=== PATIENT | female | born 1990 ===

== ENCOUNTER 2017-08-26 08:42 | Inpatient (IN) | payer OTHER ==
[2017-08-26 09:29] VITALS: BMI 29.8
[2017-08-26] MEDS ORDERED: Lactated Ringer's 1,000 ML IV SCH (10:30)
[2017-08-26] MEDS: Lactated Ringer's 500 ML IV SCH ×4 (10:30→22:48)
[2017-08-26 10:43] LABS: BASO % 0.4 % (0.0-2.0); EOS # 0.1 K/uL (0.0-0.7); EOS % 0.6 % (0.0-4.0); HEMATOCRIT 37.8 % (34.0-47.0); LYMPH # 1.1 K/uL (1.0-4.3); LYMPH % 11.4 % (20.0-40.0); MEAN CELL VOLUME 86.6 fl (81.0-99.0); MEAN CORPUSCULAR HEMOGLOBIN 28.8 pg (27.0-31.0); MEAN CORPUSCULAR HGB CONC 33.2 g/dL (33.0-37.0); MEAN PLATELET VOLUME 9.3 fl (7.2-11.7); MONO # 0.8 K/uL (0.0-0.8); MONO % 8.9 % (0.0-10.0); NEUT # 7.3 K/uL (1.8-7.0); NEUT % 78.7 % (50.0-75.0); NRBC % 0.1 % (0.0-0.0); RED CELL DISTRIBUTION WIDTH 13.8 % (11.5-14.5); WHITE BLOOD COUNT 9.3 K/uL (4.8-10.8)
[2017-08-26] MEDS: Oxytocin 30 units/LR 500ML 30 U/500 ML BAG IV ONE (11:00)
[2017-08-26] MEDS ORDERED: Lidocaine 1% Inj (20ml) ONE (11:39)
[2017-08-27] MEDS ORDERED: cefOXitin Sodium 1 GM in Sodium Chloride 0.9% 100 ML IVPB ONE (05:26)
[2017-08-27] MEDS ORDERED: Phenylephrine 10 mg/ml Inj ONE (05:54)
[2017-08-27] MEDS ORDERED: ePHEDrine 50 mg/ml Inj ONE (05:55)
[2017-08-27] MEDS ORDERED: Morphine 1 mg/ml preservative-free Inj(Duramorph) ONE (05:56)
--- NOTE | 2017-08-27 05:57 | OBPN ---
Datetime: 08/27/2017 05:51 IP Progress Impression: Arrest of dilatation/descent IP Informed Consent Obtain: Section Delivery; Risks, Benefits and Alternatives Discussed IP Progress Plan: Deliver- Section Membranes, Provider: Intact Contraction Comments Provider: 2-3 FHR - Baseline A Provider: 150"s Gestation - Est Wks by US: [id number] IP Progress Note Comment: pt examined at 520 am and basically no changes dispite good UC and augumen tation with Pitocin Discussed about CPD and situation and agreed with abdominal delivery Informed con sent was obtained will start on pre-op antibiotics Anesthesia called NICHD Accel Fetus A IP Provider: [id number] NICHD Variability Prov Fetus A: Moderate 6-25bpm Dilatation, Provider: 4cm Effacement, Provider: 60% Station, Provider: high NICHD Decel Fetus A IP Provider: None
[2017-08-27] MEDS: Oxytocin 30 units/LR 500ML 30 U/500 ML BAG IV ONE (06:27)
[2017-08-27] MEDS ORDERED: Oxytocin 30 units/LR 500ML 30 U/500 ML BAG IV ONE (06:27)
[2017-08-27] MEDS ORDERED: Naloxone 0.4 mg/ml Inj (Adult) IVP PRN (06:54)
[2017-08-27] MEDS ORDERED: DiphenhydrAMINE 50 mg/ml Inj IVP PRN (06:54)
--- NOTE | 2017-08-27 07:22 | OBDS ---
DELIVERY PERSONNEL Delivery Doctor: Tiffany Martinez MD Quality Facilitator: Ma. Darcie Yu RN Anesthesiologist: Joao Quiroga MD MATERNAL INFORMATION Delivery Anesthesia: Spinal Estimated Blood Loss (ml): 850 Maternal Complications: None Provider Comments: see dictated surgeons note LABOR SUMMARY EDC: 08/21/2017 00:00 No. Babies in Womb: 1 Attempted: No Labor Anesthesia: None LABOR INFORMATION Reason for Induction: Postterm Oxytocin: Induction Group B Beta Strep: Negative Steroids Given: None Reason Steroids Not Administered: Not Applicable MEMBRANES Membranes Rupture Method: Spontaneous Rupture of Membranes: 08/27/2017 06:25 Length of Rupture (hrs): 0.02 Amniotic Fluid Color: Clear STAGES OF LABOR Stage 3 hrs: 0 Stage 3 min: 1 VAGINAL DELIVERY Episiotomy: None Laceration Extension: N/A Laceration Type: None Laceration Repair: Not Applicable Sponge Count Correct: Yes Sharps Count Correct: Yes Count Comment: count corrrect x3 CSECTION DELIVERY Primary Indication: Secondary Arrest of Dilatation Other Primary Indication: CPD Secondary Indication: Failure of Descent CSection Urgency: Elective Labor: Labor Elective: Elective CSection Incision: Lower Uterine Transverse Uterine Closure: Double-layer closure BABY A INFORMATION Delivery Date/Time: 08/27/2017 06:26 Method of Delivery: Born in Route : No : N/A Forceps: N/A Vacuum Extraction: N/A Shoulder Dystocia : No SHOULDER DYSTOCIA BABY A Infant Delivery Date/Time: 08/27/2017 06:26 PRESENTATION/POSITION BABY A Presentation: Cephalic PLACENTA INFORMATION BABY A Placenta Delivery Time : 08/27/2017 06:27 Placenta Method of Delivery: Spontaneous Placenta Status: Delivered SCORES BABY A Heart Rate 1 min: >100 bpm Resp Effort 1 min: Good Cry Reflex Irritability 1 min: Cough or Sneeze or Pulls Away Muscle Tone 1 min: Active Motion Color 1 min: Body [place], Extremities Blue Resuscitation Effort 1 min: Tactile Stimulation SCORE 1 MIN: 9 Heart Rate 5 min: >100 bpm Resp Effort 5 min: Good Cry Reflex Irritability 5 min: Cough or Sneeze or Pulls Away Muscle Tone 5 min: Active Motion Color 5 min: Body [place], Extremities Blue Resuscitation Effort 5 min: N/A SCORE 5 MIN: 9 INFANT INFORMATION BABY A Gestational Age at Delivery: 40.6 Gestational Status: Post-term Outcome : Liveborn Condition : Stable Sex: Female IDENTIFICATION/MEDS BABY A ID Band Number: [id number] ID Band Location: Left Leg; Left Arm WEIGHT/LENGTH BABY A Birthweight (gms): 4215 Infant Weight (lb): 9 Weight (oz): 5 CORD INFORMATION BABY A No. Cord Vessels: 3 Nuchal Cord : Around Neck x1, Loose Cord Blood Taken: Yes Suction: Mouth; Nose
[2017-08-27] MEDS: cefOXitin Sodium 1 GM in Sodium Chloride 0.9% 100 ML IVPB SCH ×2 (13:53→22:40)
[2017-08-27] MEDS: Lactated Ringer's 500 ML IV SCH ×3 (13:54→19:31)
--- NOTE | 2017-08-27 20:54 | OP ---
PROCEDURE DATE: 08/27/2017 PREOPERATIVE DIAGNOSES: 1. of 40 weeks and 6 days' gestation. 2. Arrest of dilatation and failure to descent secondary to cephalopelvic disproportion. POSTOPERATIVE DIAGNOSES: 1. of 40 weeks and 6 days gestation. 2. Arrest of dilatation and failure to descent secondary to cephalopelvic disproportion. 3. Nuchal cord x1. 4. Macrosomia. PROCEDURE: Primary low-transverse segment section. SURGEON: Charbel Martinez MD MANAGER OFFICE SERVICES: Dr. Rebollar, who was there for the entire duration of the case. Mitten Stitcher was needed in positioning the patient, opening of the abdomen, delivery of the baby, and closure of the abdomen. ANESTHESIA USED: Spinal per Dr. Quiroga. ESTIMATED BLOOD LOSS: 750 mL. DRAINS USED: None. REPLACEMENT USED: None. FINDINGS: 1. Delivered living baby girl, baby appears term, large for gestational age. Baby cried spontaneously. Pediatrist in attendance. score of 9 and 9. 2. Nuchal cord x1, loose. 3. Amniotic fluid clear. 4. Placenta delivered complete and intact. 5. Both tubes and ovaries appeared grossly within normal limits to inspection bilaterally. DESCRIPTION OF PROCEDURE: The patient was taken to the operating room and placed on the operating table in supine position. Following induction of spinal anesthesia, the patient was then replaced in the supine position. Husain catheter was inserted into the bladder and was draining clear fluid. Venodyne boots were applied to both legs. The abdomen was then draped and prepped in a usual sterile manner. Anesthesia was tested and found to be well secured, and a Pfannenstiel incision was then made using sharp dissection two fingerbreadths above the symphysis pubis. The incision was then extended down to subcutaneous tissue also using sharp dissection. Hemostasis was obtained by means of electrocoagulation. The fascia was then identified, was then entered at the midline, and the incision in the fascia was then extended laterally on each direction in a semi-curvilinear fashion. Rectus muscle was then identified, which was then split in the midline, disposing the peritoneum. Peritoneal layer was then picked up using two Em clamps, retracted superiorly, and then entered using sharp dissection. Incision in the peritoneum was then extended superiorly and inferiorly under direct visualization. At this time, the bladder was then identified and was then retracted inferiorly using the [place] retractor. The low transverse segment of the uterus was then identified and the visceroperitoneum covering this area was then entered using sharp dissection. Using blunt dissection, a bladder flap was then created and retracted inferiorly using the same [place] retractor. Following this, we then proceeded to make an incision on the low transverse segment of the uterus. Upon entering the uterine cavity, clear fluid was noted to be present. The incision was then extended laterally in each direction using bandage scissors. Using amnioscopy procedure, a living baby girl was then delivered. The baby appears large for gestational age, appeared term, and the baby cried spontaneously. The umbilicus was then doubly clamped, cut, and the baby handed to the pediatric personnel who was standing by. Samples of cord blood were then obtained, and the placenta was then delivered complete and intact. There had been a loop of cord that was undone prior to full delivery, loose. At this time, the uterus was then exteriorized in order to provide better visualization. The uterine cavity was then thoroughly cleaned using moist lap pad, and the uterus was massaged and contracted well. The uterine incision was then secured using multiple T clamps, and was then approximated using a 0 Vicryl suture in a continuous interlocking manner. A second layer was also applied using 0 Vicryl suture in a continuous manner. Hemostasis was checked and found to be well secured. The bladder flap was then approximated using a 2-0 Vicryl in a continuous manner. Again, hemostasis was checked and found to be well secured. Free amniotic fluid and blood were then evacuated from the pelvic cavity. The pelvic cavity was then irrigated using saline solution, evacuated off this solution, and all operative areas checked, hemostatically secured. Both tubes and ovaries appeared grossly within normal limits to inspection bilaterally and the uterus was then allowed to retract back into its original position. All operative areas were checked, hemostatically secured, and the peritoneum was then closed using 0 Vicryl suture in a continuous manner. Rectus muscle was also closed at the midline using 0 Vicryl suture in a continuous manner. At this time, operative areas were checked, found to be hemostatically secure, and the fascia was then identified and approximated using 1 Vicryl suture in a continuous manner. Fascia was then checked and found to be free of defect. Subcutaneous tissue was then irrigated using saline solution and approximated using several interrupted 2-0 plain sutures after hemostatically secured by means of electrocoagulation. At this time, we then proceeded to close the skin using a 3-0 Prolene in a subcuticular fashion. Steri-Strips were then applied. The patient tolerated the procedure well. There were no complications. Clear fluid noted to be present in the Husain bag at this time. Sponge, instrument, and needle counts were correct x3. Charbel Martinez MD
[2017-08-27] MEDS ORDERED: Lactated Ringer's 1,000 ML IV SCH (23:45)
[2017-08-28] MEDS: Lactated Ringer's 500 ML IV SCH ×2 (04:36)
[2017-08-28] MEDS: cefOXitin Sodium 1 GM in Sodium Chloride 0.9% 100 ML IVPB SCH (05:52)
[2017-08-28] MEDS: Oxycodone/Acetaminophen 5/325 mg Tab PO PRN ×3 (06:30→20:55)
[2017-08-28 06:50] LABS: HEMATOCRIT 30.8 % (34.0-47.0); MEAN CELL VOLUME 85.9 fl (81.0-99.0); MEAN CORPUSCULAR HEMOGLOBIN 29.3 pg (27.0-31.0); MEAN CORPUSCULAR HGB CONC 34.1 g/dL (33.0-37.0)
--- NOTE | 2017-08-28 08:37 | OBPPN ---
Datetime: 08/28/2017 08:31 PP Pain Prov: Within normal limits PP Pain Prov comment: No SOB, chest pains or leg pains PP Nausea Prov: Denies PP Flatus Prov: Yes PP Breasts Prov: Normal PP Lungs Prov: Normal PP Abdomen/Uterus Prov: Abnormal PP Lochia Prov: Normal PP Vulva/Perineum Prov: Normal PP CVA Tenderness Prov: Normal PP Extremities Prov: Normal PP C/S Incision Prov: Normal PP Progress Prov: Normal PP Comments Phys Exam Prov: breast not engorged NT; Abd soft ND depressible fundus firm at umb, Dres sing removed no active bleeding no sign of infection Ext no calf tenderness PP Impression Prov: Normal progression PP Plan Prov: Continue present management PP Progress Note Prov: increase diet OOB and ambulation Start po iron Continue po care IP PP Procedures: None
[2017-08-28] MEDS ORDERED: Simethicone 80 mg Chewtab PO PRN (21:01)
[2017-08-28 21:34] LABS: BASO % 0.2 % (0.0-2.0); EOS % 0.2 % (0.0-4.0); HEMATOCRIT 33.9 % (34.0-47.0); LYMPH % 9.1 % (20.0-40.0); MEAN CELL VOLUME 86.9 fl (81.0-99.0); MEAN CORPUSCULAR HEMOGLOBIN 28.4 pg (27.0-31.0); MEAN CORPUSCULAR HGB CONC 32.7 g/dL (33.0-37.0); MEAN PLATELET VOLUME 8.3 fl (7.2-11.7); MONO # 0.9 K/uL (0.0-0.8); MONO % 8.1 % (0.0-10.0); NEUT # 8.9 K/uL (1.8-7.0); NEUT % 82.4 % (50.0-75.0); PLATELET COUNT 205 K/uL (130-400); RED CELL DISTRIBUTION WIDTH 14.2 % (11.5-14.5); WHITE BLOOD COUNT 10.7 K/uL (4.8-10.8)
[2017-08-28 22:30] LABS: BASOPHIL 1 % (0-2); EOSINOPHIL 1 % (0-7); NEUTROPHIL 75 % (42-75); TOTAL CELLS COUNTED 100
[2017-08-28 22:31] LABS: LARGE PLATELETS PRESENT
[2017-08-29] MEDS: Oxycodone/Acetaminophen 5/325 mg Tab PO PRN (01:25)
--- NOTE | 2017-08-29 13:15 | OBPPN ---
Datetime: 08/29/2017 13:10 PP Pain Prov: Within normal limits PP Pain Prov comment: No SOB chest or leg pains PP Nausea Prov: Denies PP Flatus Prov: Yes PP BM Prov: Yes PP Nausea Prov comment: no more shoulder pains PP Breasts Prov: Normal PP Heart Prov: Normal PP Lungs Prov: Normal PP Abdomen/Uterus Prov: Abnormal PP Lochia Prov: Normal PP Vulva/Perineum Prov: Normal PP CVA Tenderness Prov: Normal PP Extremities Prov: Normal PP C/S Incision Prov: Normal PP Progress Prov: Normal PP Comments Phys Exam Prov: breast not engorged NT; Abd soft nd, depressible fundus firm below the u mb. Incision clean and dry prrolene in place, Ext no edema or calf tenderness PP Impression Prov: Normal progression PP Plan Prov: Continue present management PP Progress Note Prov: continue PO care and OOB and ambulation IP PP Procedures: None
[2017-08-29] MEDS ORDERED: Simethicone 80 mg Chewtab PO PRN (17:09)
--- NOTE | 2017-08-30 11:36 | OBDCSUM ---
Datetime: 08/30/2017 11:34 Discharged to, Provider: Home Follow up at, Provider: Disch Instr Activity: Bedrest; May be up to bathroom; May be up for meals; May Shower Disch Instr Diet: Regular Discharge Instructions, Provider: Specific instructions as noted Discharge Diagnosis, Provider: Term Delivered Discharge Time: 08/30/2017 11:34 Follow up in weeks, Provider: 1week Disch Referrals: None Disch Activity Restrictions: No exercising; No lifting; No driving; Minimize walking; Minimize stair -climbing; No sexual activity; Nothing in vagina - [place], tampons, douche Contraception after Delivery: Undecided
[2017-08-30 17:24] VITALS: BP 115/74; PULSE 78; RESP 20; TEMP 98.3; O2SAT 99
== END 2017-08-30 13:05 | disposition home or self-care (01) | DRG 371 ==
LOC: H.EROB2 08:42 → H.L&D 10:22 → H.OB/GYN 08-27 10:00
PROVIDERS: ADMIT Specialist; ATTEND Specialist
PROC: 10D00Z1 Extraction of Products of Conception, Low, Open Approach (ICD-10-PCS; principal; 2017-08-26)
PROC: 4A1HXCZ Monitoring of Products of Conception, Cardiac Rate, External Approach (ICD-10-PCS; 2017-08-26)
DX: O62.1 Secondary uterine inertia (principal); O48.0 Post-term pregnancy; O32.4XX0 Maternal care for high head at term, not applicable or unspecified; Z37.0 Single live birth; O33.9 Maternal care for disproportion, unspecified; O36.63X0 Maternal care for excessive fetal growth, third trimester, not applicable or unspecified; O62.0 Primary inadequate contractions; O69.81X0 Labor and delivery complicated by cord around neck, without compression, not applicable or unspecified; Z3A.40 40 weeks gestation of pregnancy